=== PATIENT | male | born 1970 | race Two or more races ===

== ENCOUNTER 2017-10-06 16:06 | Emergency (ER) | payer OTHER ==
[~2017-10-06] VITALS: Ht 172.7 cm; Wt 81.6 kg
--- NOTE | 2017-10-06 16:54 | Emergency Room Report ---
History of Present Illness General Chief Complaint: Head Injury Source: Patient Present Illness HPI Present male comes in for claim for head injury that occurred at 2:30 PM today. Patient states that he was hammering and a hammer rebounded back and hit him on the left eyebrow. Patient states that he has a laceration to his left upper eyebrow and was told by his company that had come in for suture repair. Patient states that he has no physical signs or symptoms has no physical complaints, the patient denies any ocular or consciousness, KO, blurred vision, headache, entrapment of the eye, photophobia, bleeding, inability to use facial muscles, nausea or vomiting. Patient states TDAP is UTD and denies any allergies to medications. Allergies: Coded Allergies: No Known Allergies (Unverified , 10/06/17) Patient History Past Medical History: see triage record Past Surgical History: none Pertinent Family History: none Immunizations: UTD Reviewed Nursing Documentation: PMH: Agreed, PSxH: Agreed Nursing Documentation-PMH Past Medical History: No Stated History Review of Systems All Other Systems: negative except mentioned in HPI Physical Exam Vital Signs Date Time Temp Pulse Resp B/P (MAP) Pulse Ox O2 Delivery O2 Flow Rate FiO2 10/06/17 16:15 98.2 79 16 144/72 98 Room Air Sp02 EP Interpretation: reviewed, normal General Appearance: no apparent distress, alert, GCS 15, non-toxic Head: normocephalic, atraumatic Eyes: bilateral eye normal inspection, bilateral eye PERRL, bilateral eye EOMI ENT: hearing grossly normal, normal pharynx, no angioedema, normal voice Neck: full range of motion, supple/symm/no masses Respiratory: normal breath sounds Cardiovascular #1: normal peripheral pulses Musculoskeletal: back normal, gait/station normal, normal range of motion, non- tender Neurologic: alert, oriented x3, responsive, motor strength/tone normal, sensory intact, speech normal Psychiatric: judgement/insight normal, memory normal, mood/affect normal, no suicidal/homicidal ideation Skin: normal color, no rash, warm/dry, well hydrated, laceration - as noted, 1 cm lac left upper eyebrow region Procedures Laceration/Wound Repair Laceration/Wound Repair : Consent: Verbal Wound Location: head Wound's Depth, Shape: superficial, linear Wound Length (cm): 1 Wound Explored: clean Irrigated w/ Saline (ccs): 100 Betadine Prep?: Yes Anesthesia: 1% Lidocaine Volume Anesthetic (ccs): 3 Wound Debrided: minimal Wound Repaired With: sutures Suture Size/Type: 6:0, proline Number of Sutures: 2 Layer Closure?: No Sterile Dressing Applied?: Yes Complications: None Medical Decision Making PA Attestation Dr. Saravia is my supervising physician with whom patient management has been discussed with. Diagnostic Impression: Primary Impression: Eyebrow laceration Qualified Codes: S01.112A - Laceration without foreign body of left eyelid and periocular area, initial encounter Additional Impression: Acute head injury Qualified Codes: S09.90XA - Unspecified injury of head, initial encounter ER Course Pt. presents to the ED c/o laceration Ddx considered but are not limited to avulsion, laceration, abrasion, fracture, tendon rupture, contusion Vital signs: are WNL, pt. is afebrile H&PE are most consistent with laceration to left eye brow w/o complications ORDERS: Bacitracin ED INTERVENTIONS: Suture repair DISCHARGE: At this time pt. is stable for d/c to home. Will provide printed patient care instructions, and any necessary prescriptions. Care plan and follow up instructions have been discussed with the patient prior to discharge. Last Vital Signs Date Time Temp Pulse Resp B/P (MAP) Pulse Ox O2 Delivery O2 Flow Rate FiO2 10/06/17 16:15 98.2 79 16 144/72 98 Room Air Status: unchanged Disposition: HOME, SELF-CARE Condition: Improved Scripts No Active Prescriptions or Reported Meds Patient Instructions: Laceration Care, Adult Additional Instructions: Keep wound clean and dry. Follow up in 2-4 days for wound check. Return in 8-10 days for suture removal. Avoid sun exposure to minimize scarring. Patient advised that they can take a shower or bath, but be sure to pat the area dry with a towel afterward. Patient should come back sooner if they experience any red areas that get bigger, more swollen, have pus draining from wound, or if the site becomes more painful. YOSELIN INFANTE Oct 06, 2017 16:54
[2017-10-06] MEDS ORDERED: Bacitracin Oint UD TOPIC ONE (17:00)
[2017-10-06 17:08] VITALS: BP 128/69
[2017-10-06 18:05] VITALS: BP 128/69
== END 2017-10-06 18:10 | disposition home or self-care (01) ==
LOC: EMR 16:50
DX: S01.112A Laceration without foreign body of left eyelid and periocular area, initial encounter (principal); W22.8XXA Striking against or struck by other objects, initial encounter; Y92.69 Other specified industrial and construction area as the place of occurrence of the external cause; Y99.0 Civilian activity done for income or pay
CPT/HCPCS: 99284

== ENCOUNTER 2017-10-09 15:55 | Emergency (ER) | payer OTHER ==
[~2017-10-09] VITALS: Ht 165.1 cm; Wt 72.6 kg
[2017-10-09 16:00] VITALS: BP 131/76
--- NOTE | 2017-10-09 16:12 | Emergency Room Report ---
History of Present Illness General Chief Complaint: Wound Recheck/Suture Removal Source: Patient Present Illness HPI 47-year-old male presents to the emergency department for wound recheck of laceration sustained to the left eyebrow that was previously sutured approximately 4 days ago. Patient denies erythema, discharge, tenderness, bleeding. He states he is up-to-date with vaccinations. Allergies: Coded Allergies: No Known Allergies (Unverified , 10/06/17) Patient History Past Medical History: see triage record Past Surgical History: none Pertinent Family History: none Immunizations: UTD Reviewed Nursing Documentation: PMH: Agreed, PSxH: Agreed Nursing Documentation-PMH Past Medical History: No Stated History Review of Systems All Other Systems: negative except mentioned in HPI Physical Exam Vital Signs Date Time Temp Pulse Resp B/P (MAP) Pulse Ox O2 Delivery O2 Flow Rate FiO2 10/09/17 15:58 98.2 78 20 131/76 99 Room Air Sp02 EP Interpretation: reviewed, normal General Appearance: no apparent distress, alert, GCS 15, non-toxic Head: normocephalic, atraumatic - healed laceration of the Left eyebrow Eyes: bilateral eye normal inspection, bilateral eye PERRL ENT: hearing grossly normal, normal voice Neck: full range of motion Respiratory: lungs clear, normal breath sounds, speaking full sentences Cardiovascular #1: regular rate, rhythm Musculoskeletal: gait/station normal, normal range of motion Neurologic: alert, oriented x3, responsive, motor strength/tone normal, sensory intact, normal gait, speech normal Skin: normal color, no rash, warm/dry, well hydrated, wd healing/no infection noted - healed laceration of the Left eyebrow two sutures in place. no erythema ,no d/c. Medical Decision Making PA Attestation Dr. Gutierrez is my supervising Physician whom patient management has been discussed with. Diagnostic Impression: Primary Impression: Encounter for removal of sutures ER Course 47-year-old male presents to the emergency department for wound recheck of laceration sustained to the left eyebrow that was previously sutured approximately 4 days ago. Patient denies erythema, discharge, tenderness, bleeding. He states he is up-to-date with vaccinations. Ddx considered but are not limited to laceration, tendon injury, cellulitis, dehiscence. Vital signs: are WNL, pt. is afebrile H&PE are most consistent with: healed laceration of the Left eyebrow ORDERS: none required at this time, the diagnosis is clinical ED INTERVENTIONS: - 2 Sutures removed. -- no dehiscence of evidence of infection. instructed pt. to continue to clean gently, and to apply antibiotic ointment as needed. DISCHARGE: At this time pt. is stable for d/c to home. Will provide printed patient care instructions, and any necessary prescriptions. Care plan and follow up instructions have been discussed with the patient prior to discharge. Last Vital Signs Date Time Temp Pulse Resp B/P (MAP) Pulse Ox O2 Delivery O2 Flow Rate FiO2 10/09/17 15:58 98.2 78 20 131/76 99 Room Air Disposition: HOME, SELF-CARE Condition: Stable Scripts No Active Prescriptions or Reported Meds Departure Forms: Return to Work Return to Work Date: Oct 10, 2017 Work Restrictions: None Other Restrictions: RETURN TO FULL DUTY. Return to Full Activity: Oct 10, 2017 Patient Instructions: Suture Removal, Care After Additional Instructions: Follow up with a Primary Care Provider in 3-5 days, even if your symptoms have resolved. --Please review list of primary care clinics, if you do not already have a primary care provider Return sooner to ED if new symptoms occur, or current symptoms become worse. - Please note that this Emergency Department Report was dictated using [employer] tram loader technology software, occasionally this can lead to erroneous entry secondary to interpretation by the dictation equipment. Roya Lees Oct 09, 2017 16:12
[2017-10-09 16:30] VITALS: BP 128/70
== END 2017-10-09 16:34 | disposition home or self-care (01) ==
LOC: EMR 16:20
DX: S01.112D Laceration without foreign body of left eyelid and periocular area, subsequent encounter (principal); X58.XXXD Exposure to other specified factors, subsequent encounter; Z48.02 Encounter for removal of sutures
CPT/HCPCS: 99281